=== PATIENT | male | born 1995 | race Caucasian/White ===

== ENCOUNTER 2019-08-26 05:56 | Inpatient (IN) ==
[2019-08-26 06:42] LABS: Basophils # 0.1 K/mcL (0.0-0.2); Basophils % 0.9 %; Eosinophils # 0.3 K/mcL (0.0-0.6); Eosinophils % 3.5 %; Hematocrit 49.2 % (37.5-50.1); Hemoglobin 17.6 g/dL (12.9-16.9); Immature Granulocytes % 0.2 % (0-4); Lymphocytes # 3.6 K/mcL (0.6-4.6); Lymphocytes % 41.3 %; Mean Corpuscular HGB Conc 35.8 g/dL (31.6-35.5); Mean Corpuscular Hemoglobin 30.9 pg (28.0-33.3); Mean Corpuscular Volume 86.3 fL (83.0-100.0); Mean Platelet Volume 10.1 fL (9.4-12.4); Monocytes # 0.7 K/mcL (0.0-1.3); Monocytes % 7.4 %; Neutrophils # 4.1 K/mcL (1.6-8.9); Platelet Count 240 K/mcL (140-400); Red Cell Distribution Width 12.5 % (11.5-14.5); Segmented Neutrophils % 46.7 %; White Blood Count 8.8 K/mcL (4.3-11.1)
[2019-08-26 06:49] LABS: Bilirubin,Urine Negative (Negative); Blood,Urine Negative (Negative); Clarity,Urine Clear (Clear); Color,Urine Yellow (Yellow); Glucose,Urine (UA) Normal (Normal); Ketones,Urine Negative (Negative); Leukocyte Esterase,Urine Negative (Negative); Nitrite,Urine Negative (Negative); PH,Urine 6.5 pH Units (5.0-8.0); Protein,Urine Negative (Neg-Trace); Specific Gravity,Urine 1.008 (1.010-1.025); Urobilinogen,Urine Normal (Normal)
[2019-08-26 07:04] LABS: Amphetamine Screen,Urine Negative ng/mL (Cutoff=1000); Barbiturate Screen,Urine Negative ng/mL (Cutoff=200)
[2019-08-26 07:05] LABS: Benzodiazepines Screen,Urine Negative ng/mL (Cutoff=300); Cannabinoid Screen,Urine Negative ng/mL (Cutoff = 50); Cocaine Screen,Urine Negative ng/mL (Cutoff= 300); Opiate Screen,Urine Negative ng/mL (Cutoff=300); Phencyclidine Screen,Urine Negative ng/mL (Cutoff=25)
[2019-08-26 07:11] LABS: Acetaminophen < 10 mcg/mL (10-20); Alanine Aminotransferase 13 Units/L (7-52); Albumin 5.1 g/dL (3.5-5.7); Albumin/Globulin Ratio 1.9 (1.1-2.2); Alkaline Phosphatase 77 Units/L (34-104); Aspartate Amino Transferase 19 Units/L (13-39); BUN/Creatinine Ratio 9 (6-26); Bilirubin,Direct 0.1 mg/dL (0.0-0.2); Bilirubin,Indirect 0.5 mg/dL (0.0-1.0); Bilirubin,Total 0.6 mg/dL (0.3-1.0); Blood Urea Nitrogen 7 mg/dL (6-20); Calcium 9.8 mg/dL (8.6-10.3); Carbon Dioxide 31 mEq/L (23-29); Chloride 105 mEq/L (98-107); Chol/HDL Ratio 3.6 (0-4.9); Cholesterol 178 mg/dL (< 200); Ethanol 246 mg/dL (Less than 10); Globulin 2.7 g/dL (2.4-3.5); Glucose 114 mg/dL (70-105); HDL Cholesterol 50 mg/dL (40-59); LDL Cholesterol,Calculated 117 mg/dL (0-99); Osmolality,Calculated 293 (280-300); Potassium 3.9 mEq/L (3.5-5.1); Salicylate < 2.5 mg/dL (15.0-30.0); Sodium 142 mEq/L (136-145); Total Protein 7.8 g/dL (6.4-8.9); Triglycerides 53 mg/dL (< 150); eGFR For African Americans > 60 (> 60); eGFR For Non-African Americans > 60 (> 60)
[2019-08-26 07:23] LABS: Thyroid Stimulating Hormone 6.209 mcIU/mL (0.340-5.600)
[2019-08-26 08:29] LABS: Estimated Average Glucose 123 mg/dl
[2019-08-26] MEDS ORDERED: traZODone 50 MG TABLET PO PRN (19:18)
[2019-08-26] MEDS ORDERED: MOM Conc 10 ML UD.LIQ PO PRN (19:18)
[2019-08-26] MEDS ORDERED: Mag Hydrox/Al Hydrox/Simeth 30 ML UDC PO PRN (19:18)
[2019-08-26] MEDS ORDERED: Acetaminophen 325 MG TABLET PO PRN (19:18)
[2019-08-26] MEDS ORDERED: Haloperidol Lactate 5 MG/ML VIAL IM PRN (19:18)
[2019-08-26] MEDS ORDERED: *HR* LORazepam 1 MG TABLET PO PRN (19:18)
[2019-08-26] MEDS ORDERED: *HR* LORazepam 2 MG/ML VIAL IM PRN (19:18)
[2019-08-26] MEDS ORDERED: Nicotine 2 MG GUM BC PRN (20:18)
[2019-08-28] MEDS: hydrOXYzine pamoate 25 MG CAPSULE PO PRN (20:53)
[2019-08-29 08:18] LABS: Chol/HDL Ratio 3.2 (0-4.9)
[2019-08-29 08:38] LABS: Triiodothyronine (T3) Total 1.07 ng/mL (0.87-1.78)
[2019-08-29] MEDS: hydrOXYzine pamoate 25 MG CAPSULE PO PRN (11:12)
[2019-08-29 20:16] VITALS: BP 128/78
== END 2019-08-30 11:55 | disposition home or self-care (01) | DRG 817 ==
LOC: EMEROOARM 05:56 → 1ANU 19:08
PROVIDERS: ADMIT Psychiatry & Neurology Psychiatry; ATTEND Psychiatry & Neurology Psychiatry